=== PATIENT | female | born 1970 | race Caucasian/White ===

== ENCOUNTER 2018-11-05 18:08 | Emergency (ER) | payer SELFPAY ==
[~2018-11-05] VITALS: Ht 167.6 cm; Wt 50.0 kg
[2018-11-05 18:26] VITALS: Ht 167.6 cm; Wt 50.0 kg
[2018-11-05 19:22] LABS: BACTERIA FEW /hpf (NONE SEEN); EPITHELIAL CELLS 0-5 /hpf (0-5); RED CELLS - URINE 0-5 /hpf (0-5); WHITE CELLS - URINE 0-5 /hpf (0-5)
[2018-11-05 20:15] LABS: BASOPHILS 0.4 % (0-2); HEMATOCRIT 42.8 % (36.0-48.0); HEMOGLOBIN 14.9 g/dL (12-16); IMMATURE GRANULOCYTES 0.1 % (0-5); MCH 31.8 pg (26.0-34.0); MCHC 34.8 g/dL (31.0-37.0); MCV 91.3 fL (80.0-100.0); MONOCYTES 6.2 % (2-11); NEUTROPHILS 54.3 % (40-80); PLATELET COUNT 163 10x3/uL (130-400); RBC 4.69 10x6/uL (4.00-5.40); RDW 12.1 % (11.5-14.5); WBC 6.8 10x3/uL (4.8-10.8)
[2018-11-05 20:29] LABS: ALKALINE PHOSPHATASE 44 U/L (46-116); ALT (SGPT) 20 U/L (10-68); BILIRUBIN - TOTAL 0.46 mg/dL (0.2-1.3); CALC OSMOLALITY 279 mosm/kg (275-300); CALCIUM 8.7 mg/dL (8.5-10.1); CARBON DIOXIDE 28.9 mmol/L (21.0-32.0); CHLORIDE - SERUM 103 mmol/L (98-107); CREATININE - SERUM 0.7 mg/dL (0.6-1.3); GLUCOSE 144 mg/dL (74-106); POTASSIUM - SERUM 3.1 mmol/L (3.5-5.1); PROTEIN - SERUM 6.9 g/dL (6.4-8.2); SODIUM 139 mmol/L (136-145); UREA NITROGEN 10 mg/dL (7-18); eGFR NON AFRICAN AMERICAN > 90 mL/min (90-120)
[2018-11-05] MEDS ORDERED: KEFLEX500 MG PO (21:11)
[2018-11-05] MEDS ORDERED: MACROBID100 MG PO (21:11)
[2018-11-06] VITALS: BP 112/72
== END 2018-11-05 21:45 | disposition home or self-care (01) ==
LOC: D.ER 18:08
PROVIDERS: Family Medicine
DX: N39.0 Urinary tract infection, site not specified (principal)

== ENCOUNTER 2019-01-26 06:20 | Emergency (ER) | payer SELFPAY ==
[~2019-01-26] VITALS: Ht 167.6 cm; Wt 50.0 kg
[~2019-01-26 06:20] MED LIST: KEFLEX500 MG PO; MACROBID100 MG PO
[2019-01-26 06:23] VITALS: Ht 167.6 cm; Wt 50.0 kg
[2019-01-26] MEDS ORDERED: PHENAZOPYRIDIN200 MG PO (06:25)
[2019-01-26 07:29] LABS: BASOPHILS 0.5 % (0-2); EOSINOPHILS 2.1 % (0-7); HEMATOCRIT 44.5 % (36.0-48.0); HEMOGLOBIN 15.1 g/dL (12-16); IMMATURE GRANULOCYTES 0.2 % (0-5); LYMPHOCYTES 20.9 % (15-50); MCH 31.5 pg (26.0-34.0); MCHC 33.9 g/dL (31.0-37.0); MCV 92.7 fL (80.0-100.0); MEAN PLATELET VOLUME 9.8 fL (7.4-10.4); MONOCYTES 7.1 % (2-11); NEUTROPHILS 69.2 % (40-80); RDW 12.5 % (11.5-14.5); WBC 6.6 10x3/uL (4.8-10.8)
[2019-01-26 07:30] LABS: BACTERIA FEW /hpf (NEGATIVE); EPITHELIAL CELLS 0-5 /hpf (0-5); RED CELLS - URINE 0-5 /hpf (0-5); WHITE CELLS - URINE NSEEN /hpf (NEGATIVE)
[2019-01-26 07:31] LABS: HCG URINE NEGATIVE (NEGATIVE)
[2019-01-26 07:35] LABS: ALBUMIN 4.1 g/dL (3.4-5.0); ALKALINE PHOSPHATASE 57 U/L (46-116); ALT (SGPT) 30 U/L (10-68); BILIRUBIN - TOTAL 0.47 mg/dL (0.2-1.3); CALC OSMOLALITY 286 mosm/kg (275-300); CALCIUM 9.1 mg/dL (8.5-10.1); CARBON DIOXIDE 28.7 mmol/L (21.0-32.0); CHLORIDE - SERUM 107 mmol/L (98-107); CREATININE - SERUM 0.7 mg/dL (0.6-1.3); GLUCOSE 114 mg/dL (74-106); POTASSIUM - SERUM 3.7 mmol/L (3.5-5.1); PROTEIN - SERUM 7.2 g/dL (6.4-8.2); SODIUM 144 mmol/L (136-145); UREA NITROGEN 10 mg/dL (7-18); eGFR NON AFRICAN AMERICAN > 90 mL/min (90-120)
[2019-01-26] MEDS ORDERED: MACROBID100 MG PO (07:36)
[2019-01-26] MEDS ORDERED: KEFLEX500 MG PO (07:36)
[2019-01-26] MEDS ORDERED: CYCLOBENZAPRINE10 MG PO (07:37)
[2019-01-26] MEDS ORDERED: IBUPROFEN800 MG PO (07:37)
[2019-01-26] MEDS ORDERED: ACETAMINOPHEN500 M1 PO (07:37)
[2019-01-26 08:00] LABS: PLATELET COUNT 199 10x3/uL (130-400)
[2019-01-26 08:20] VITALS: BP 119/77
== END 2019-01-26 08:20 | disposition home or self-care (01) ==
LOC: D.ER 06:20
PROVIDERS: Family Medicine
DX: N39.0 Urinary tract infection, site not specified (principal)